=== PATIENT | female | born 2005 | race Caucasian/White ===

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

== ENCOUNTER → 2023-01-12 14:06 | Outpatient (CLI) | payer OTHER, SELFPAY ==
--- NOTE | 2023-01-12 14:09 | US_ITS ---
PROCEDURE: US OB /MATERNAL DETAIL CLINICAL INDICATION: 20 week anatomy scan COMPARISON: No exams were available for comparison FINDINGS: From her established due date she is 20 weeks 5 days Single viable intrauterine gestation. Cephalic position. Placenta: Posteriorplacenta grade 1. There is average amount fluid. The cervix appears satisfactory. Closed and measuring 3.0 cm in length. Complete survey performed and was unremarkable on the submitted images as in PACS. No discrete anomalies identified on survey imaging by technologist. Active fetus. Three-vessel cord with satisfactory umbilical cord insertion. 4- chamber heart noted. Situs, LVOT, RVOT, aortic arch appear normal. Survey of brain & ventricles Unremarkable. Cerebellum, cisterna magna, choroid plexus, thalamus appear normal. Face and neck survey unremarkable. Profile, nasion, lips and nose appeared normal. Diaphragm and chest views unremarkable. Abdomen: Both kidneys noted and unremarkable. Stomach and bladder appear normal. Spine: Survey of the spine satisfactory with no anomalies identified nor imaged. Upper, thoracic and lower spine appear normal. Both arms and legs noted. Amniotic Fluid: Adequate. Measurements: Average ultrasound age 20weeks 5days. Estimated due date by ultrasound age 1205/27/2023. Estimated weight 362g BPD = 20weeks 6days OFD = 20weeks 4days HC = 20weeks 4days AC = 21weeks 2days FL = 19weeks 6days Growth Percentile= 36 Heart Rate = 170bpm Cerebellum = 20weeks 1day Humerus = 20weeks 6days HC/AC is 1.13 CI is 0.8 FL/BPD is 0.64 FL/AC is 0.2 IMPRESSION: 1. Viable fetus in the cephalic presentation with a posterior placenta grade 1. 2. The fluid is within normal limits. 3. Anatomical scan appears normal. 4. Size and dates are appropriate. Dictated by: Ricardo Hernández MD 01/13/2023 13:09 Ricardo Hernández MD in [facility] 01/13/2023 13:09
== END ==
PROVIDERS: PCP Emergency Medicine; Visit Provider Nurse Practitioner Obstetrics & Gynecology
DX: Z34.92 Encounter for supervision of normal pregnancy, unspecified, second trimester (principal); Z3A.20 20 weeks gestation of pregnancy
CPT/HCPCS: 76811

== ENCOUNTER → 2023-03-01 16:44 | Outpatient (CLI) | payer OTHER, SELFPAY | PROVIDERS: PCP Emergency Medicine; Visit Provider Nurse Practitioner Obstetrics & Gynecology | DX: Z34.90 Encounter for supervision of normal pregnancy, unspecified, unspecified trimester (principal) ==

== ENCOUNTER 2023-03-02 09:57 | Outpatient (CLI) | payer OTHER, SELFPAY ==
[2023-03-02 10:45] LABS: Glucose,Fasting 85 mg/dl (74-100)
[2023-03-02 10:56] LABS: Basophils # 0.1 K/mm3 (0-0.2); Basophils % 0.6 % (0.1-2.0); Eosinophils # 0.2 K/mm3 (0.0-0.4); Eosinophils % 2.3 % (0.1-12.0); Hematocrit 33.6 % (37.0-47.0); Hemoglobin 11.3 g/dL (12.2-16.2); Lymphocytes # 1.5 K/mm3 (0.7-4.5); Lymphocytes % 16.9 % (10-50); Mean Corpuscular HGB Conc 33.6 g/dL (31.8-35.4); Mean Corpuscular Hemoglobin 29.9 pg (27.0-31.2); Mean Corpuscular Volume 89.1 fl (81-99); Mean Platelet Volume 9.4 fl (7.4-10.4); Monocytes # 0.3 K/mm3 (0.1-1.0); Monocytes % 3.7 % (1.7-9.3); Neutrophils # 6.7 K/mm3 (1.8-7.8); Neutrophils % 76.6 % (37.0-80.0); Platelet Count 271 K/mm3 (142-424); Red Blood Count 3.77 M/mm3 (4.20-5.40); Red Cell Distribution Width 12.5 % (11.5-17.5); White Blood Count 8.8 K/mm3 (4.5-13.0)
[2023-03-02 11:53] VITALS: BP 122/77; PULSE 97; RESP 18; TEMP 36.7; O2SAT 100
[2023-03-02 13:10] LABS: Glucose 1 Hour 90 mg/dL (74-100)
== END 2023-03-02 11:53 | disposition home or self-care (01) ==
PROVIDERS: PCP Emergency Medicine; Visit Provider Nurse Practitioner Obstetrics & Gynecology
DX: Z34.92 Encounter for supervision of normal pregnancy, unspecified, second trimester (principal); Z3A.27 27 weeks gestation of pregnancy
CPT/HCPCS: 36415; 82951; 85025; 96372; J2790

== ENCOUNTER → 2023-05-03 07:38 | Outpatient (CLI) | payer OTHER, SELFPAY | PROVIDERS: PCP Nurse Practitioner Obstetrics & Gynecology; Visit Provider Nurse Practitioner Obstetrics & Gynecology | DX: Z34.93 Encounter for supervision of normal pregnancy, unspecified, third trimester (principal); Z3A.36 36 weeks gestation of pregnancy | CPT/HCPCS: 86403 ==

== ENCOUNTER → 2023-05-16 09:57 | Outpatient (CLI) | payer OTHER, SELFPAY ==
--- NOTE | 2023-05-16 09:58 | US_ITS ---
PROCEDURE: US OB BIOPHYSICAL PROFILE CLINICAL INDICATION: sga COMPARISON: Anatomy scan 01/12/2023 FINDINGS: Transabdominal sonographic images of the uterus were obtained. From her established due date she is 38weeks 3days. The following parameters are obtained: Viable fetus in the cephalic presentation with a posterior placenta grade 2 Average ultrasound age is 36weeks 4days. Estimated due date by ultrasound is 06/09/2023. Estimated weight is 6lb 7oz, 2926 grams.. Cervical length 2.5 cm. heart rate: 150bpm bpm. BPD: 36 weeks 3 days HC: 37 weeks 2 days AC: 36 weeks 4 days FL: 36 weeks 0 days HC/AC: 1.01 Cephalic index: FL/BPD: 0.78 FL/AC: 0.21 17Percentile Amniotic fluid index: 7.13cm MVP 3.0 cm. Qualitative AFV: 2 breathing movements: 2 Gross body movements: 2 Tone: 2 Biophysical profile score: 8 Doppler evaluation of the umbilical artery: SD ratio: 1.80-2.55 Resistive index: 0.61 No obvious anomalies evident.Kidneys, bladder, stomach, four-chamber view, three-vessel cord appear normal. IMPRESSION: 1. Viable fetus in the cephalic presentation with posterior placenta grade 2. 2. The fluid is slightly low with an amniotic fluid index of 7.13. The MVP is 3.0 cm. 3. Biophysical profile is 8/8 with good breathing movement and good movement seen. 4. SD ratio is normal. 5. There has been good interval growth and the fetus is currently 17th percentile. Dictated by: Ricardo Hernández MD 05/16/2023 13:43 Ricardo Hernández MD in OV 05/16/2023 13:43
== END ==
PROVIDERS: PCP Nurse Practitioner Obstetrics & Gynecology; Visit Provider Nurse Practitioner Obstetrics & Gynecology
DX: O36.5930 Maternal care for other known or suspected poor fetal growth, third trimester, not applicable or unspecified (principal); Z3A.38 38 weeks gestation of pregnancy
CPT/HCPCS: 76816; 76819; 76820

== ENCOUNTER 2023-05-24 05:13 | Inpatient (IN) | payer OTHER, SELFPAY ==
[2023-05-24 05:18] VITALS: BMI 29.2
[2023-05-24 05:37] VITALS: BP 138/76; PULSE 118; RESP 18; TEMP 36.6; O2SAT 97; BMI 29.2
[2023-05-24 05:42] LABS: Microscopic, Urine URINE MICROSCOPIC (MICROSCOPIC)
[2023-05-24 05:42] LABS: Basophils # 0.1 K/mm3 (0-0.2); Basophils % 0.5 % (0.1-2.0); Eosinophils # 0.1 K/mm3 (0.0-0.4); Eosinophils % 1.1 % (0.1-12.0); Hematocrit 34.4 % (37.0-47.0); Hemoglobin 11.6 g/dL (12.2-16.2); Lymphocytes # 1.9 K/mm3 (0.7-4.5); Lymphocytes % 19.8 % (10-50); Mean Corpuscular HGB Conc 33.7 g/dL (31.8-35.4); Mean Corpuscular Hemoglobin 28.2 pg (27.0-31.2); Mean Corpuscular Volume 83.7 fl (81-99); Mean Platelet Volume 10.6 fl (7.4-10.4); Monocytes # 0.4 K/mm3 (0.1-1.0); Neutrophils # 7.4 K/mm3 (1.8-7.8); Neutrophils % 74.7 % (37.0-80.0); Platelet Count 281 K/mm3 (142-424); Red Blood Count 4.11 M/mm3 (4.20-5.40); White Blood Count 9.9 K/mm3 (4.5-13.0)
[2023-05-24 05:43] LABS: Bilirubin,Urine Negative (Negative); Blood, Urine Negative (Negative); Color,Urine YELLOW (Yellow); Glucose,Urine (UA) Negative (Negative); Ketones,Urine Negative (Negative); Leukocyte Esterase,Urine 2+ (Negative); Nitrate,Urine Negative (Negative); Protein,Urine Negative (Negative); Specific Gravity, Urine >= 1.030 (1.005-1.030); Urobilinogen,Urine 0.2 EU/dl (0.2)
[2023-05-24 05:45] LABS: Appearance,Urine Slightly Cloudy (Clear)
[2023-05-24 05:55] LABS: Amphetamine/Metha Screen,Urine Negative ng/ml (<1000)
[2023-05-24 05:56] LABS: Barbiturates Screen,Urine Negative ng/ml (<200); Benzodiazepines Screen,Urine Negative ng/ml (<200)
[2023-05-24 05:57] LABS: Cannabinoid Screen,Urine Negative ng/ml (<50); Cocaine Screen,Urine Negative ng/ml (<300)
[2023-05-24 05:58] LABS: Methadone Screen,Urine Negative ng/ml (<300)
[2023-05-24 05:59] LABS: Amorphous Sediment,Urine 2+ /lpf; Bacteria,Urine 1+ /lpf; Mucus,Urine 1+ /lpf; Opiate Screen,Urine Negative ng/ml (<300); Phencyclidine Screen,Urine Negative ng/ml (<25)
--- NOTE | 2023-05-24 07:33 | HMH.PHAINT1 ---
Pharmacy Intervention Comments: MEDICATION RECONCILIATION COMPLETED ON PATIENT USING EXTERNAL FILL HISTORY FROM PHARMACY. -JANI VALLEJO, J LUISD
--- NOTE | 2023-05-24 13:11 | EXP.HP ---
History of Present Illness *Admission Date: 05/24/23 *Reason for visit:: Induction *History of present illness: Evelin Ellis is a 17-year-old G2, P0 who presented to L&D for elective induction of labor. care was by Dr. Hernández and was complicated by hyperemesis, hypothyroidism, Rh- blood, teenage , and THC use. On presentation she endorsed contractions and movement denies any leakage of fluid. O-, antibody negative, rubella immune, hepatitis B negative, hepatitis C negative, RPR negative, HIV negative 1 hour GTT: 90 GBS negative PFSH [facility] Disclaimer: The information contained in this section may have been updated after the patient was seen, as this information can be updated by other users. Medical History Anxiety Depression Major depressive disorder Mood disorder Urinary tract infection Surgical History History of tympanostomy tube placement Family History Other No significant family history Social History Smoking Status: Never smoker alcohol intake: never substance use type: denies use current occupational status: employed Travel in the last 8 weeks: None household members: family housing: house number of children: 0 Review of Systems Review of Systems Review of systems (narrative): Review of Systems Constitutional: Denies fever, chills, and sweats Eyes: Denies vision change/ pain Respiratory: Denies cough and shortness of breath Cardiovascular: Denies chest pain and lightheadedness Gastrointestinal: Admits abdominal pain with contractions. Denies nausea, vomiting. Genitourinary: Denies dysuria and incontinence Musculoskeletal: Denies shoulder pain and back pain Neurological: Denies change in speech or headaches Meds Home Medications and Allergies Home Medications Medication Instructions Recorded Confirmed Type vits no.126-ferrous fum 1 tab PO DAILY Supplement 11/09/22 05/24/23 History 28 mg iron-folic acid 800 mcg tablet (Classic ) ferrous sulfate 325 mg (65 mg 325 mg PO DAILY Supplement 05/24/23 05/24/23 History iron) tablet,delayed release New Prescriptions to Start Prescriptions: Allergies Allergy/AdvReac Type Severity Reaction Status Date / Time No Known Allergies Allergy Verified 05/16/23 11:16 Exam Data for Last 24 hours Vital signs and Labs for Last 24 Hours: Temp Pulse Resp BP Pulse Ox O2 Del Method 98 F 118 H 18 138/76 97 Room Air 05/24/23 05:37 05/24/23 05:37 05/24/23 05:37 05/24/23 05:37 05/24/23 05:37 05/24/23 05:37 Laboratory Results - last 24 hr 05/24/23 05:26: Urine Color Yellow, Urine Appearance Slightly cloudy, Urine pH 6.0, Ur Specific Earle >= 1.030, Urine Protein Negative, Urine Glucose (UA) Negative, Urine Ketones Negative, Urine Blood Negative, Urine Nitrate Negative, Urine Bilirubin Negative, Urine Urobilinogen 0.2, Ur Leukocyte Esterase 2+ A, Urine WBC 3-5, Amorphous Sediment 2+, Urine Bacteria 1+, Urine Mucus 1+, Urine Opiates Screen Negative, Urine Methadone Screen Negative, Ur Barbituates Screen Negative, Ur Phencyclidine Scrn Negative, Ur Amphetamines Screen Negative, U Benzodiazepines Scrn Negative, Urine Cocaine Screen Negative, U Marijuana (THC) Screen Negative 05/24/23 05:35: WBC 9.9, RBC 4.11 L, Hgb 11.6 L, Hct 34.4 L, MCV 83.7, MCH 28.2, MCHC 33.7, RDW 14.0, Plt Count 281, MPV 10.6 H, Neut % (Auto) 74.7, Lymph % (Auto) 19.8, Shoshone % (Auto) 4.0, Eos % (Auto) 1.1, Baso % (Auto) 0.5, Neut # (Auto) 7.4, Lymph # (Auto) 1.9, Shoshone # (Auto) 0.4, Eos # (Auto) 0.1, Baso # (Auto) 0.1, Blood Type O Negative, Antibody Screen Negative I & O for Last 24 hours: Intake & Output 05/21/23 05/22/23 05/23/23 05/24/23 23:59 23:59 23:59 23:59 Weight 181 lb Narrativ
--- NOTE | 2023-05-24 20:12 | P.PCN_ITS ---
Delivery Note Delivery Date:: 05/24/23 Delivery Time:: 19:13 Anesthesia Type: Epidural Was labor medically induced?: Yes Induction method: per pitocin protocol Gestational age (weeks): 39 delivered prior to 39 weeks?: No Infant Gender: Male at 1 minute: 9 at 5 minutes: 9 LAC or MLE?: LAC Delivery Procedure:: Preoperative diagnosis: 1. at 39.4 completed this weeks gestation, vertex 2. Rh negative 3. GBS negative Postoperative diagnosis: 1. at 39.4 completed this weeks gestation, vertex 2. Rh negative 3. GBS negative EBL: 450mL Specimen: 1. Cord blood Findings: 1. Liveborn viable male infant: Jensen. Apgars 9/9 at 1 and 5 minutes res pectively. Weight: 7 pounds 5 ounces 2. 2nd degree midline perineal laceration and a left labial laceration Complications: None Procedure: Nonoperative spontaneous vaginal delivery Evelin Ellis is a 17 yo who presenteed to labor and delivery for elective induction of labor. was uncomplicated. Patient was brought to labor and delivery and induced by Pitocin protocol. She had artificial rupture of membranes around 12:00 revealing clear fluid. She received an epidural for anesthesia. She continued to follow a normal labor curve and progressed to complete. The was noted to be in MITRA position. With effective maternal pushing there was a nonoperative spontaneous vaginal delivery at 1913. There was a nuchal cord x1 that was reduced without difficulty. The anterior right shoulder delivered, followed by the posterior shoulder without dystocia. The body and lower extremities delivered without difficulty. The infant was bulb suctioned and was crying immediately following delivery. The infant was placed on the maternal abdomen and greater than one minute was appreciated for delayed cord clamping. The umbilical cord was doubly clamped and cut. Cord blood was collected and sent for routine testing. The placenta delivered with cord traction and suprapubic contertraction. Pitocin was started and the placenta and cord were inspected. The placenta was noted to be i ntact, with a 3 vessel cord. The uterus was boggy but became firm with fundal massage. There was a significant amount of bleeding from the laceration. Laceration was inspected and noted to be a second-degree midline perineal. Epidural was adequate for anesthesia. Repair was completed in the normal fashion with 2-0 and 3-0 Vicryl. During repair there was noted to be increased blood loss that appeared to be coming from the uterus. The dose of Methergine was ordered. The perineum, vaginal gallardo, cervix, and paraurethral area were inspected thoroughly and noted to be hemostatic at this time. This concluded the delivery. The patient was counseled regarding the events of the delivery and repair. The patient tolerated the delivery well. All counts were correct by nursing. Mother and were doing well and bonding upon my leaving the delivery room. Laceration:: vaginal and labial Placental Delivery Description: Spontaneous
--- NOTE | 2023-05-24 21:22 | EXP.ANES.CKL ---
[facility] Disclaimer: The information contained in this section may have been updated after the patient was seen, as this information can be updated by other users. Medical History Anxiety Depression Major depressive disorder Mood disorder Urinary tract infection Surgical History History of tympanostomy tube placement Family History Other No significant family history Social History Smoking Status: Never smoker alcohol intake: never substance use type: denies use current occupational status: employed Travel in the last 8 weeks: None household members: family housing: house number of children: 0 [facility] Anesthesia Checklist Patient Identification Patient Identification: Arm Band and Family Structural Data Admitted From: Home Planned Operative Procedure/s: Epidural for labor Consent for Planned Operative Procedure(s) Verified: Yes Verified Documents: Surgical Consent and History and Physical NPO Status Verified Time NPO: 00:00 Additional verifications Patient : Yes Anesthesia Reactions: No Blood Transfusion Reaction: No Cephalosporin Allergy: No Airway Assessment Mallampati Score:: Class II C-Spine Mobility Assessed: Yes TMJ Mobility Assessed: Yes Dentition: Good Dentition Neurological Assessment Level of Consciousness: Awake, Alert and Appropriate Hx Seizures: No Numbness or tingling in extremities: No Anesthesia Plan Anesthesia Risk discussed: Yes ASA Class: I Anesthesia Type: Epidural Preoperative Comments Pre-Operative Comments: 39 weeks gestation in labor
[2023-05-25 07:09] LABS: Basophils % 0.2 % (0.1-2.0); Eosinophils % 0.2 % (0.1-12.0); Hematocrit 25.7 % (37.0-47.0); Hemoglobin 8.7 g/dL (12.2-16.2); Lymphocytes # 1.6 K/mm3 (0.7-4.5); Lymphocytes % 12.6 % (10-50); Mean Corpuscular HGB Conc 33.7 g/dL (31.8-35.4); Mean Corpuscular Hemoglobin 28.5 pg (27.0-31.2); Mean Corpuscular Volume 84.7 fl (81-99); Mean Platelet Volume 10.9 fl (7.4-10.4); Monocytes # 0.5 K/mm3 (0.1-1.0); Monocytes % 4.2 % (1.7-9.3); Neutrophils # 10.7 K/mm3 (1.8-7.8); Neutrophils % 82.7 % (37.0-80.0); Platelet Count 224 K/mm3 (142-424); Red Blood Count 3.04 M/mm3 (4.20-5.40)
--- NOTE | 2023-05-25 11:31 | EXP.PN ---
Subjective *Date: 05/25/23 *Time: 11:31 Interval history: Evelin Ellis Is a 17-year-old day #1 following a normal spontaneous vaginal delivery. was uncomplicated. Routine delivery and course. Patient reports Her pain is controlled with ibuprofen and Tylenol. States she is just sore. Tolerating p.o. without nausea or vomiting. Reports her lochia is scant. She is bottle-feeding her male infant. Circumcision desired. Ambulating, voiding difficulty or dysuria. Denies chest pain shortness of breath or pain in her legs. No further complaints at this time. Exam Data for Last 24 hours Vital signs and Labs for Last 24 Hours: Temp Pulse Resp BP Pulse Ox O2 Del Method 98 F 118 H 18 138/76 97 Room Air 05/24/23 05:37 05/24/23 05:37 05/24/23 05:37 05/24/23 05:37 05/24/23 05:37 05/24/23 05:37 Laboratory Results - last 24 hr 05/25/23 06:51: WBC 13.0 D, RBC 3.04 L D, Hgb 8.7 L, Hct 25.7 L, MCV 84.7, MCH 28.5, MCHC 33.7, RDW 14.0, Plt Count 224, MPV 10.9 H, Neut % (Auto) 82.7 H, Lymph % (Auto) 12.6, [place] % (Auto) 4.2, Eos % (Auto) 0.2, Baso % (Auto) 0.2, Neut # (Auto) 10.7 H, Lymph # (Auto) 1.6, [place] # (Auto) 0.5, Eos # (Auto) 0.0, Baso # (Auto) 0.0 I & O for Last 24 hours: Intake & Output 05/22/23 05/23/23 05/24/23 05/25/23 23:59 23:59 23:59 23:59 Weight 181 lb Narrative: General: patient is alert oriented in no acute distress and responds appropriately to questions. Appears to be in minimal pain. Sitting up in the chair and doing well HEENT: NCAT, EOMI, moist mucous membranes, neck supple with full ROM Cardiovascular: RRR +S1/S2, no murmurs or rubs Pulmonary: Clear to auscultation bilaterally, nonlabored breathing, symmetric chest rise Abdominal: Fundus below the umbilicus, firm, and tenderness appropriate for the period. Extremities: no edema, no tenderness or cyanosis noted Skin: Normal turgor, intact, warm. Negative for erythema, pallor, petechia, or lesions Neurologic: Negative for sensory or motor deficit Psychiatric: Normal affect, normal thought process, good judgment and insight, no depression or anxious mood appreciated. Constitutional Constitutional: no acute distress *Routine HEENT Exam Head: Present normocephalic Eye: Present EOMI and PERRL ENT: Present mucous membranes moist *Routine Neck Exam Neck: Present supple; Absent lymphadenopathy *Routine Respiratory Exam Respiratory: Present CTA bilaterally *Routine Cardiovascular Exam Cardiovascular: Present RRR *Routine Abdominal Exam Abdominal: Present soft and normoactive bowel sounds; Absent tenderness *Routine Extremities Exam Extremities: Absent cyanosis, clubbing or edema *Routine Skin Exam Skin: Present warm; Absent rash *Routine Neurological Exam Neurological: Present alert and oriented X3 Assessment and Plan *Assessment and plan (1) (normal spontaneous vaginal delivery): Status: Acute Category: Medical Code(s): O80 - Encounter for full-term uncomplicated delivery Plan Stable. PPD#1 s/p - second degree -Doing well. VSS. Serial lochia and fundal checks. -Continue with perineal ice packs for discomfort -Hemoglobin: 11.6--> 8.7 - asymptomatic anemia noted. Vitals stable. Continue monitoring. DC with Fe -O-/antibody negative. follow for Rhogam -bottle feeding, male infant -Desires circumcision, consents signed and risks reviewed -Contraception: undecided -Follow-up 2 weeks for routine visit -Dispo: home tomorrow pending mother/infant status
--- NOTE | 2023-05-25 13:58 | SW/DCPLANNER ---
Addendum entered by Mayte Souza 05/30/23 08:32: Infant cord screen is NEGATIVE. Addendum entered by Mayte Souza 05/26/23 10:19: I have updated Kimberlee wellington/ JAQUAN regarding referral. Addendum entered by Mayte Souza 05/25/23 14:06: 's urine is negative. Original Note: I received a consult on this patient regarding: teen and +THC during . Patient tested positive for THC on 11/16/22. Patient tested negative on the following dates: 03/08/23, 04/19/23 and 05/24/23. Patient delivered male (Jensen Mcgarry) on 05/24/23. Infant's father (Zeferino Mgcarry 04/06/04) was present at the time of my visit. Patient, Zeferino, and patient's mother (Naomi Owusu) will reside at [address] [place] [address] in [place] [address]. Patient's contact number is [phone]. Patient stated this is her first child. Patient is currently established w/ WIC and is interested in HANDS ( I will make contact w/ JAQUAN today). Patient stated that she has the following items at home: crib, carseat, clothing, diapers and will be bottle feeding. PED MD is Dr Ramirez and patient will have transportation to all follow up appointments. Per OB nursing staff (Sabina) patient has been appropriate. Patient is planned to discharge home tomorrow 05/26/23 pending no setbacks.
[2023-05-25 20:45] VITALS: BP 123/61; PULSE 98; RESP 20; TEMP 36.8; O2SAT 98
[2023-05-26 04:42] VITALS: BP 122/56; PULSE 71; RESP 18; TEMP 36.7; O2SAT 99
[2023-05-26 08:30] VITALS: BP 125/81; PULSE 86; RESP 17; TEMP 36.7; O2SAT 99
--- NOTE | 2023-05-26 10:36 | EXP.DC.SUM ---
General Admission date:: 05/24/23 Discharge date: 05/26/23 HPI HPI HPI: Evelin Ellis is a 17-year-old G2, P0 who presented to L&D for elective induction of labor. care was by Dr. Hernández and was complicated by hyperemesis, hypothyroidism, Rh- blood, teenage , and THC use. On presentation she endorsed contractions and movement denies any leakage of fluid. O-, antibody negative, rubella immune, hepatitis B negative, hepatitis C negative, RPR negative, HIV negative 1 hour GTT: 90 GBS negative Hospital Course Hospital Course Hospital Course: Evelin Ellis Is a 17-year-old day #2 following a normal spontaneous vaginal delivery. was uncomplicated. Routine delivery and course. Patient reports Her pain is controlled with ibuprofen and Tylenol. States she is just sore. Tolerating p.o. without nausea or vomiting. Reports her lochia is scant. She is bottle-feeding her male infant. Circumcision desired. Ambulating, voiding difficulty or dysuria. Denies chest pain shortness of breath or pain in her legs. No further complaints at this time. Patient desires discharge home. Routine discharge structures reviewed with patient in detail and she voiced understanding. All questions and concerns were addressed. She will follow-up for 2-week visit Exam Data for Last 24 hours Vital signs and Labs for Last 24 Hours: Temp Pulse Resp BP Pulse Ox O2 Del Method 98.1 F 71 18 122/56 L 99 Room Air 05/26/23 04:42 05/26/23 04:42 05/26/23 04:42 05/26/23 04:42 05/26/23 04:42 05/26/23 04:42 I & O for Last 24 hours: Intake & Output 05/23/23 05/24/23 05/25/23 05/26/23 23:59 23:59 23:59 23:59 Weight 181 lb Microbiology Reports for the Last 24 Hours: Microbiology 05/24/23 05:26 Urine,Clean Catch Urine Culture - Final Narrative: General: patient is alert oriented in no acute distress and responds appropriately to questions. Appears to be in minimal pain. Sitting up in the chair and doing well HEENT: NCAT, EOMI, moist mucous membranes, neck supple with full ROM Cardiovascular: RRR +S1/S2, no murmurs or rubs Pulmonary: Clear to auscultation bilaterally, nonlabored breathing, symmetric chest rise Abdominal: Fundus below the umbilicus, firm, and tenderness appropriate for the period. Extremities: no edema, no tenderness or cyanosis noted Skin: Normal turgor, intact, warm. Negative for erythema, pallor, petechia, or lesions Neurologic: Negative for sensory or motor deficit Psychiatric: Normal affect, normal thought process, good judgment and insight, no depression or anxious mood appreciated. Constitutional Constitutional: no acute distress *Routine HEENT Exam Head: Present normocephalic Eye: Present EOMI and PERRL ENT: Present mucous membranes moist *Routine Neck Exam Neck: Present supple; Absent lymphadenopathy *Routine Respiratory Exam Respiratory: Present CTA bilaterally *Routine Cardiovascular Exam Cardiovascular: Present RRR *Routine Abdominal Exam Abdominal: Present soft and normoactive bowel sounds; Absent tenderness *Routine Extremities Exam Extremities: Absent cyanosis, clubbing or edema *Routine Skin Exam Skin: Present warm; Absent rash *Routine Neurological Exam Neurological: Present alert and oriented X3 DS: Diagnosis Discharge Diagnosis (1) (normal spontaneous vaginal delivery): Status: Acute Code(s): O80 - Encounter for full-term uncomplicated delivery Problem details: Stable. PPD#2 s/p - second degree -Doing well. VSS. Serial lochia and fundal checks. -Continue with perineal ice packs for discomfort -Hemoglobin: 11.6--> 8.7 - asymptomatic anemia noted. Vitals stable. Continue monitoring. DC with Fe -O-/antibody negative. Fetus Rh negative. RhoGAM not indicated -bottle feeding, male infant -Desires circumcision, consents signed and risks reviewed -Contraception: undecided
== END 2023-05-26 13:35 | disposition home or self-care (01) | DRG 806 ==
PROVIDERS: Obstetrics & Gynecology; Admitting Provider Nurse Practitioner Obstetrics & Gynecology; PCP Emergency Medicine; Visit Provider Nurse Practitioner Obstetrics & Gynecology
DX: O69.81X0 Labor and delivery complicated by cord around neck, without compression, not applicable or unspecified (principal); D62 Acute posthemorrhagic anemia; Z37.0 Single live birth; Z3A.39 39 weeks gestation of pregnancy; O70.1 Second degree perineal laceration during delivery; O90.81 Anemia of the puerperium
CPT/HCPCS: 59409; 36415; 59025; 80305; 81001; 85025; 86850; 87086; 94761; C1758; G0283

== ENCOUNTER 2023-07-26 16:22 | Outpatient (CLI) | payer OTHER, SELFPAY ==
[2023-07-27 23:14] LABS: Neisseria gonorrhoeae, NAA Negative (Negative)
== END 2023-07-26 23:59 ==
LOC: LAB.DROPOF 16:22
PROVIDERS: PCP Obstetrics & Gynecology; Visit Provider Obstetrics & Gynecology
DX: Z30.9 Encounter for contraceptive management, unspecified (principal)
CPT/HCPCS: 87491; 87591

== ENCOUNTER 2024-06-05 16:32 | Emergency (ER) | payer OTHER, SELFPAY ==
[2024-06-05 17:20] VITALS: BP 120/78; PULSE 100; RESP 20; TEMP 37.2; O2SAT 99; BMI 24.7
--- NOTE | 2024-06-05 17:20 | EXP.UTC ---
Discharge Plan Disposition Patient Disposition: Home, Self-Care Condition: Good Prescriptions Prescriptions: New [id number] [Bromfed DM] 2-30-10 mg/5 mL Syrup 5 ml PO Q6H PRN (Reason: Cough) Qty: 240 0RF ondansetron 4 mg Tablet,Disintegrating 4 mg PO Q8H PRN (Reason: Nausea) Qty: 9 0RF Referrals Follow up/Referrals: Provider,Referral, MD [Primary Care Provider] - See instructions Activity Restrictions/Add. Instructions Additional Instructions/Restrictions: Drink plenty of fluids. Take tylenol for pain or fever. Take the medications as directed. Follow up with your regular doctor. GO TO THE ER FOR ANY WORSENING SYMPTOMS Clinical Impressions Clinical Impression: Acute viral syndrome Stand Alone Forms Stand Alone Forms: Work/School Release Instructions Patient Instructions: DI for Viral Syndrome, Ondansetron Print Language Print Language: Persian Discharge ED Provider: Davi Romo [facility] General Stated complaint: runny nose,cough,sore throat Time Seen by Provider: 06/05/24 17:20 Related Data Previous Rx's ?Medication ?Instructions ?Recorded [id number]-PW 5 ml PO Q6H PRN Cough #240 mL 06/05/24 2 mg-30 mg-10 mg/5 mL oral syrup (Bromfed DM) ondansetron 4 mg disintegrating 4 mg PO Q8H PRN Nausea #9 tabs 06/05/24 tablet Allergies Allergy/AdvReac Type Severity Reaction Status Date / Time No Known Allergies Allergy Verified 07/26/23 15:21 [facility] Disclaimer: The information contained in this section may have been updated after the patient was seen, as this information can be updated by other users. Medical History Anxiety Depression Major depressive disorder Mood disorder Urinary tract infection Surgical History History of tympanostomy tube placement Family History Other No significant family history Social History Smoking Status: Never smoker alcohol intake: never substance use type: denies use current occupational status: employed Travel in the last 8 weeks: None household members: family housing: house number of children: 0 ROS Obtained: Yes All systems reviewed & no additional complaints except as documented Constitutional Constitutional: Reports chills and Reports fever(s) Eyes Eyes: Denies eye discharge ENT Ears, Nose, Mouth, and Throat: Reports as per HPI Cardiovascular Cardiovascular: Denies chest pain Respiratory Respiratory: Denies chest congestion and Reports cough Gastrointestinal Gastrointestingal: Reports nausea; Denies abdominal pain, constipation, cramping, diarrhea or vomiting Musculoskeletal Musculoskeletal: Denies arthralgias Integumentary/Breasts Skin/Breast: Denies rash Neurologic Neurologic: Denies paresthesias Physical Exam General General appearance: alert and in no apparent distress Head Head exam: atraumatic, normocephalic and normal inspection Eye Eye exam: Present normal appearance, PERRL and EOMI ENT ENT exam: Present normal exam, normal oropharynx, mucous membranes moist, TM's normal bilaterally and normal external ear exam Neck Neck exam: Present normal inspection, full ROM and trachea midline; Absent meningismus or lymphadenopathy Chest Chest inspection: Present normal inspection and symmetric chest wall rise; Absent tenderness Respiratory Respiratory exam: Present normal lung sounds bilaterally; Absent respiratory distress Cardiovascular Cardiovascular exam: Present regular rate and normal rhythm; Absent JVD Abdominal Exam Abdominal exam: Present soft and normal bowel sounds; Absent distention, tenderness or guarding Extremities Exam Extremities exam: Present normal inspection, full ROM and normal capillary refill; Absent calf tenderness Back Exam Back exam: Present normal inspection; Absent tenderness Neurological Exam Neurological exam: Present alert and oriented X3 Psychiatric Psychiatric exam: Present normal affect and normal mood Skin Skin exam: Present warm, dry, intact and normal color Lymphatic Lymphatic Findings: no adenopathy Medical Decision Making Medical Records Medical records reviewed: No I reviewed the patient's medical records. Screening: Per USPSTF and CDC recommendations, given the prevalence of disease in our region, it is our hospital?s policy to screen for HIV and viral Hepatitis for all patients aged 18 and over and those with ongoing risk factors. Stu Inquiry Pt receiving controlled substance: No Lab Data Lab results reviewed: Yes I reviewed the patient's lab results.
[2024-06-05 17:25] LABS: UTC Strep Screen (Rapid) Negative (Negative)
[2024-06-05 17:26] LABS: UTC Influenza A Antigen Negative (Negative); UTC Influenza B Antigen Negative (Negative)
[2024-06-05 17:45] VITALS: BP 120/78; PULSE 100; RESP 20; TEMP 37.2; O2SAT 99
== END 2024-06-05 17:48 | disposition home or self-care (01) ==
PROVIDERS: Emergency Provider Nurse Practitioner Family
DX: B34.9 Viral infection, unspecified (principal)
CPT/HCPCS: 87804; 87880; 99213; G0381